=== PATIENT | female | born 1955 | race Caucasian/White ===

== ENCOUNTER → 2016-08-01 | Outpatient (CLI) | payer OTHER ==
[~2016-08-01] MED LIST: ABILIFY2 MG PO; AMBIEN 10MG10 MG PO; CALCIUM CARBON500 M1 PO; CALTRATE-600 W600 MG PO; CELEXA40 MG PO; CENTRUM SILVER1 TA1 PO; CEPHALEXIN500 M1 PO; FEMARA PO; FERROUS SU325 MG/TAB PO; FOLIC ACID PO; GLUCOSAMINE/CHONDROI PO; LEXAPRO 10MG10 MG PO; LORTAB 5/500 501 TAB PO; PATANOL; PATANOL OP; SYNTHROID0.1 MG/TAB PO; VITAMIN C1 TAB PO; VITAMIN C500 MG PO
== END ==
LOC: MC.RAD 10:20
DX: Z12.31 Encounter for screening mammogram for malignant neoplasm of breast (principal)

== ENCOUNTER → 2017-10-02 | Outpatient (CLI) | payer OTHER | LOC: MC.RAD 08-22 09:40 | DX: Z12.31 Encounter for screening mammogram for malignant neoplasm of breast (principal); Z90.12 Acquired absence of left breast and nipple ==

== ENCOUNTER → 2017-12-25 | Outpatient (CLI) | payer OTHER | LOC: COL.RAD 10:22 | DX: G51.0 Bell's palsy (principal); R90.82 White matter disease, unspecified | CPT/HCPCS: A9585 ==

== ENCOUNTER → 2018-10-11 | Outpatient (CLI) | payer OTHER | LOC: MC.RAD 14:17 | DX: Z12.31 Encounter for screening mammogram for malignant neoplasm of breast (principal); Z98.890 Other specified postprocedural states ==

== ENCOUNTER → 2019-10-14 | Outpatient (CLI) | payer OTHER | LOC: MC.RAD 09:51 | DX: Z12.31 Encounter for screening mammogram for malignant neoplasm of breast (principal) ==

== ENCOUNTER → 2020-11-20 | Outpatient (CLI) | payer MEDICARE, OTHER | LOC: MC.RAD 09:19 | DX: Z12.31 Encounter for screening mammogram for malignant neoplasm of breast (principal); Z85.3 Personal history of malignant neoplasm of breast ==

== ENCOUNTER → 2021-11-22 | Outpatient (CLI) | payer MEDICARE, OTHER | LOC: MC.RAD 10:59 | DX: Z12.31 Encounter for screening mammogram for malignant neoplasm of breast (principal); Z85.3 Personal history of malignant neoplasm of breast ==

== ENCOUNTER → 2022-08-09 | Outpatient (CLI) | payer MEDICARE, OTHER | LOC: COL.RAD 07-25 08:00 | DX: J32.0 Chronic maxillary sinusitis (principal) ==